=== PATIENT | female | born 1990 | race Caucasian/White ===

== ENCOUNTER 2018-08-27 20:41 | Observation (INO) | payer OTHER ==
[2018-08-27 21:07] VITALS: BMI 26.9
[2018-08-27] MEDS ORDERED: Lactated Ringer's 1,000 ML IV SCH (21:53)
[2018-08-27] MEDS ORDERED: Zolpidem Tartrate 5 MG TAB PO PRN (21:53)
[2018-08-27] MEDS ORDERED: Ondansetron PF 4 MG/2 ML Vial IVP PRN (21:53)
[2018-08-27] MEDS ORDERED: Promethazine HCl 25 MG/ML VIAL IM PRN (21:53)
[2018-08-27 22:02] VITALS: TEMP 98.6
[2018-08-27] MEDS: Acetaminophen 500 MG TAB PO PRN (22:30)
--- NOTE | 2018-08-27 22:35 | HP ---
TIME SEEN: 2130 hours. REASON FOR ADMISSION: Weakness, lower abdominal pain, near syncopal episode at 32 weeks' of gestation. HISTORY OF PRESENT ILLNESS: Ms. Clay is a 28-year-old, 1, para 0, at 32 weeks by stated EDC. Antepartum records not available in unit. She sees Dr. Zackery Aiken at [facility]. She reports that when she was at the [employer] today, she had a near syncopal episode and was brought in to the hospital in [place], ostensibly by EMS. While in [place], she had unremarkable evaluation including laboratory evaluation with a verbal report of a normal EKG. She did have another near syncopal episode on the labor and delivery unit and was transferred here for further care and because her HOP SORTER is at [facility]. HOP SORTER HISTORY: Primigravida. History of PCOS, 32 weeks by stated DAVIDA. The patient reports that she has had lower abdominal cramping for the last month and a half to 2 months of her . She denies rupture of membranes or vaginal bleeding. She also reports that she has had some problems with dizziness and low blood pressure. PAST MEDICAL HISTORY: Significant for history of obesity, anxiety, off medications. PAST SURGICAL HISTORY: Gastric sleeve. MEDICATIONS: 1. vitamin. 2. Phenergan. ALLERGIES: DENIES. SOCIAL HISTORY: Denies tobacco, alcohol, or drug abuse. FAMILY HISTORY: Noncontributory. REVIEW OF SYSTEMS: Noncontributory. PHYSICAL EXAMINATION: GENERAL: Very sad appearing white female, but no acute distress. VITAL SIGNS: Pulse is 74, respirations 18, blood pressure 99/57. HEENT: Within normal limits. LUNGS: Clear to auscultation bilaterally. HEART: Regular rate and rhythm. ABDOMEN: Soft and nontender. She has generalized discomfort with no localizing findings and no palpable contractions. She has no CVA tenderness. CERVIX: Vulva without lesions. Vagina has discharge. Cervix is soft, but posterior, thick, and high, cephalic presentation. EXTREMITIES: No clubbing, cyanosis, or edema. FHTs are 140s. heart rate monitor does not reveal any contractions and reveals a category 1 heart rate tracing. LABORATORY DATA: Thorough laboratory workup was essentially negative and unremarkable at [facility] including hematocrit of 31% and a white count of 8.2, and a normal comp met panel. IMPRESSION: Symptomatic physiologic hypotension of early third trimester with 2 near syncopal episodes, no evidence of cardiogenic etiology, physical exam, interactions suggestive of anxiety or depression being a complicating factor. PLAN: We will place the patient on observation overnight. Observe for signs or symptoms of labor and changes in blood pressure/cardiovascular status. We will discuss with Dr. Zackery Aiken and have her see patient in a.m. Job ID: [id number]
[2018-08-28] MEDS: Acetaminophen 500 MG TAB PO PRN (10:14)
--- NOTE | 2018-08-28 10:46 | PDOC.EVN ---
Event Note - Event Note Event Note: HD2 S: Reports that discomfort is almost resolved after getting Tylenol yesterday, good FM, denies UTI sx, denies constipation or loose stools. Denies fever or chills. O: VS WNL Gen: NAD A and O Abd: gravid, NTTP, discomfort is reproducible with lateral shifting of the uterus Ext: norm ROM, no edema Psy: normal affect Ucx: pending A/P: HD2 s/p overnight observation in L and D for RLQ discomfort that was relived w Tylenol. No syncopal or presyncopal sx since admisison, no signs of PTL. Discussed hydration and rest at home, Tylenol PRN and preg support belt use. Plan for DC this AM.
[2018-08-28 11:38] VITALS: BP 84/49
== END 2018-08-28 12:14 | disposition home health service (06) ==
LOC: L&D/OP 20:41 → L&D 22:02
PROVIDERS: ADMIT Obstetrics & Gynecology; ATTEND Obstetrics & Gynecology
DX: O99.413 Diseases of the circulatory system complicating pregnancy, third trimester (principal); I95.89 Other hypotension; O99.843 Bariatric surgery status complicating pregnancy, third trimester; O99.343 Other mental disorders complicating pregnancy, third trimester; F41.9 Anxiety disorder, unspecified; O99.283 Endocrine, nutritional and metabolic diseases complicating pregnancy, third trimester; E28.2 Polycystic ovarian syndrome; O99.89 Other specified diseases and conditions complicating pregnancy, childbirth and the puerperium; R10.31 Right lower quadrant pain; Z3A.32 32 weeks gestation of pregnancy; Z79.899 Other long term (current) drug therapy
CPT/HCPCS: 87077; 87086; 96360; 96361; 99285; G0378

== ENCOUNTER 2018-10-10 16:53 | Day surgery (SDC) | payer OTHER ==
[2018-10-10 17:39] VITALS: BP 106/76; TEMP 98.8
[2018-10-10 17:40] VITALS: BMI 27.8
[2018-10-10 17:42] LABS: #Lymphocytes 2.4 thou/uL (1.20-3.40); #Monocytes 0.4 thou/uL (0.11-0.59); %Basophils 0.4 % (0.0-1.0); %Eosinophils 0.4 % (0.0-10.0); %Lymphocytes 30.2 % (21.0-51.0); %Monocytes 4.6 % (0.0-10.0); %Neutrophils 64.5 % (42.0-75.0); Hemoglobin 11.3 g/dL (12.0-16.0); Mean Corpuscular HGB CONC 34.1 g/dL (32.0-36.0); Mean Corpuscular Hemoglobin 29.4 pg (27.0-31.0); Mean Corpuscular Volume 86.3 fL (78.0-98.0); Mean Platelet Volume 9.9 fL (7.4-10.4); Platelet Count 125 thou/uL (130-400); RBC Distribution Width 11.3 % (11.5-14.5); Red Blood Cell (RBC) Count 3.85 mill/uL (4.20-5.40); White Blood Cell (WBC) Count 7.8 thou/uL (4.8-10.8)
[2018-10-10] MEDS ORDERED: Acetaminophen 325 MG TAB PO PRN (17:54)
[2018-10-10 18:05] LABS: ALT (SGPT) 8 U/L (8-55); AST (SGOT) 12 U/L (5-34); Albumin 3.4 g/dL (3.5-5.0); Alkaline Phosphatase 162 U/L (40-150); Anion Gap 10 mmol/L (10-20); BUN (Urea Nitrogen) 11 mg/dL (7.0-18.7); Bilirubin, Total 0.4 mg/dL (0.2-1.2); Calc. Creatinine Clearance 145 mL/min (70-130); Calcium 8.6 mg/dL (7.8-10.44); Carbon Dioxide 26 mmol/L (22-29); Chloride 106 mmol/L (98-107); Estimated GFR-MDRD Greater than 90; Globulin 2.4 g/dL (2.4-3.5); Glucose 77 mg/dL (70-105); Potassium 3.8 mmol/L (3.5-5.1); Protein, Total 5.8 g/dL (6.0-8.3); Sodium 138 mmol/L (136-145)
[2018-10-10 18:39] LABS: Creatinine, Urine 297.15 mg/dL (47-110)
--- NOTE | 2018-10-11 11:34 | SS ---
DATE OF ADMISSION: 10/10/2018 DATE OF DISCHARGE: 10/10/2018 CHIEF COMPLAINT: Elevated blood pressures in clinic. HISTORY OF PRESENT ILLNESS: Ms. Clay is a 28-year-old white G1, P0 with an estimated date of confinement of 10/19/2018, who presents after complaining of a headache in clinic and having elevated blood pressures there of to 140s to 150s systolic per her report. Her care has been with Dr. Aiken and has been uncomplicated. PAST MEDICAL HISTORY: Polycystic ovarian syndrome. PAST SURGICAL HISTORY: Gastric sleeve. CURRENT MEDICATIONS: 1. vitamins. 2. Tylenol p.r.n. ALLERGIES: NO KNOWN ALLERGIES. SOCIAL HISTORY: She denies tobacco or alcohol use. FAMILY HISTORY: Unremarkable. REVIEW OF SYSTEMS: Positive for intermittent headache, but denies nausea, vomiting, fever, chills, right upper quadrant pain, or visual changes. PHYSICAL EXAMINATION: VITAL SIGNS: Serial blood pressures here 106/76, 105/76, and 126/78. GENERAL: She is pleasant, in no acute distress. ABDOMEN: Soft, nontender, and gravid. PELVIC: Deferred. heart rate tracing is stable without decelerations. No uterine contractions were seen. LABORATORY DATA: White count 7.8, hemoglobin and hematocrit 11.3 and 33.3, platelet count a 125,000. BUN 11, creatinine 0.75, total bilirubin 0.4, AST 12, ALT 8. Urine random; protein 33, urine creatinine 29.71, giving a protein to creatinine ratio of 0.111. ASSESSMENT: 1. 38-week intrauterine . 2. No evidence of preeclampsia at this time. PLAN: The patient will be dismissed to home with precautions. She states she has a followup with Dr. Aiken next week. Job ID: [id number]
== END 2018-10-10 20:00 | disposition home or self-care (01) ==
LOC: L&D/OP 16:53
PROVIDERS: ATTEND Obstetrics & Gynecology
DX: O99.89 Other specified diseases and conditions complicating pregnancy, childbirth and the puerperium (principal); R51 Headache; O99.283 Endocrine, nutritional and metabolic diseases complicating pregnancy, third trimester; E28.2 Polycystic ovarian syndrome; O99.843 Bariatric surgery status complicating pregnancy, third trimester; Z3A.38 38 weeks gestation of pregnancy
CPT/HCPCS: 36415; 80053; 82570; 84156; 85025; 99283

== ENCOUNTER 2018-10-12 13:48 | Day surgery (SDC) | payer OTHER ==
[2018-10-12 14:23] VITALS: TEMP 99.2; BMI 27.8
[2018-10-12] MEDS ORDERED: Acetaminophen 500 MG TAB PO PRN (15:03)
--- NOTE | 2018-10-12 15:25 | PDOC.LDHP ---
Labor and Delivery H&P Chief complaint: other (Here for MOSES...good FM) HPI: Here for persistent MOSES on/off and some decreased FM Patient of Ginna Light Time: 1445 HPI: 28 yo G1 at 39 weeks, EDC 10/20...on/off MOSES...some decreased FM. here for MOSES eval. Was at last check..no VB. was here Monday lab check passed..here for recheck Review of Systems: complete and neg Due date: 10/20/18 Dating criteria: last menstrual period Grav: 1 Current complications: none Abnormal US findings: No Past Medical History: Past Pysch: anxiety HX...no meds Current medications: pre-leobardo vitamins Previous surgical history: other (Gastric Sleeve) Allergies/Adverse Reactions: Allergies Allergy/AdvReac Type Severity Reaction Status Date / Time No Known Allergies Allergy Verified 10/12/18 14:19 Social history: none - Physical Exam Vital signs reviewed and normal: yes (100/60) General: NAD Heart: RRR Lungs: CTAB Abdomen: gravid Extremeties: no edema FHT: category 1 [place] contractions every: irritability - Assessment MOSES at 39 weeks, was 2cm 2 days ago and 80% as of today...BPs normal here. NST reactive. - Plan Plan: observation in L&D (CMP...for routine. Eval labs from [facility]...NST ok for now; serial BPs)
[2018-10-12 15:39] LABS: ALT (SGPT) 9 U/L (8-55); AST (SGOT) 14 U/L (5-34); Albumin 3.2 g/dL (3.5-5.0); Alkaline Phosphatase 149 U/L (40-150); Anion Gap 12 mmol/L (10-20); BUN (Urea Nitrogen) 11 mg/dL (7.0-18.7); Bilirubin, Total 0.5 mg/dL (0.2-1.2); Calc. Creatinine Clearance 141 mL/min (70-130); Calcium 8.9 mg/dL (7.8-10.44); Carbon Dioxide 22 mmol/L (22-29); Chloride 108 mmol/L (98-107); Estimated GFR-MDRD Greater than 90; Globulin 2.8 g/dL (2.4-3.5); Glucose 91 mg/dL (70-105); Potassium 4.3 mmol/L (3.5-5.1); Sodium 138 mmol/L (136-145)
--- NOTE | 2018-10-12 16:18 | PDOC.EVN ---
Event Note - Event Note Event Note: D/W Light...her labs were actually normal. They were referring to her UPr/CR ratio which was 0.11...that was read out to her as "abnormal", but that is normal. BPs normal here... Ok for outpatient care. CX=2cm
[2018-10-12 16:58] VITALS: BP 85/53
== END 2018-10-12 16:30 | disposition home or self-care (01) ==
LOC: L&D/OP 13:48
PROVIDERS: ATTEND Obstetrics & Gynecology
DX: O99.89 Other specified diseases and conditions complicating pregnancy, childbirth and the puerperium (principal); R51 Headache; O36.8130 Decreased fetal movements, third trimester, not applicable or unspecified; O99.343 Other mental disorders complicating pregnancy, third trimester; F41.9 Anxiety disorder, unspecified; O99.843 Bariatric surgery status complicating pregnancy, third trimester; Z3A.39 39 weeks gestation of pregnancy
CPT/HCPCS: 36415; 80053; 99283

== ENCOUNTER 2018-10-14 21:49 | Inpatient (IN) | payer OTHER ==
[2018-10-14 22:26] VITALS: BMI 28.7
--- NOTE | 2018-10-14 22:44 | PDOC.LDHP ---
Labor and Delivery H&P HPI: Patient of Dr Aiken Time: 2244 CC: possible CTX Patient was seen here Monday and was 3cm then (BPs were normal then) HPI: 28 yo G1 at term here for CTX..no LOF, no NV, CTX irregular about very 6- 10 minutes. No other sxs. Review of Systems: complete ROS completed and as per HPI Current gestational age (weeks): 39 (2 days) Due date: 10/19/18 Dating criteria: last menstrual period Grav: 1 Current complications: other (HX anxiety) Abnormal US findings: No Current medications: pre-leobardo vitamins Previous surgical history: other (gastric sleeve) Allergies/Adverse Reactions: Allergies Allergy/AdvReac Type Severity Reaction Status Date / Time No Known Allergies Allergy Verified 10/14/18 22:22 Social history: none - Physical Exam Vital signs reviewed and normal: yes (108/60) General: NAD Heart: RRR Lungs: CTAB Abdomen: gravid Extremeties: no edema FHT: category 1 [place] contractions every: every 6-7 - Vaginal Exam cm dilated: 3 Effacement: 75% Station: -1 - Assessment Latent labor at full term, BPs normal. - Plan Plan: observation in L&D (No change since last Monday (3 days prior). BPs ok. has recheck with appoitment in AM...may consider scheduled induction at that AM visit. No evidence HR issue at this time.)
[2018-10-14] MEDS ORDERED: Promethazine HCl 25 MG/ML VIAL IM/IV PRN (22:56)
[2018-10-14] MEDS ORDERED: Butorphanol Tartrate 1 MG/ML VIAL IM SCH (23:00)
--- NOTE | 2018-10-14 23:00 | PDOC.EVN ---
Event Note - Event Note Event Note: We will observe for about an hour...or more if desired...as she lives in [facility]
[2018-10-15] MEDS ORDERED: Promethazine HCl 25 MG/ML VIAL IM PRN ×2 (00:22→05:53)
[2018-10-15] MEDS ORDERED: Lidocaine 1% (PF) 30 ML VIAL SC PRN (00:22)
[2018-10-15] MEDS ORDERED: Ondansetron PF 4 MG/2 ML Vial IVP PRN ×3 (00:22→15:37)
[2018-10-15] MEDS ORDERED: Ibuprofen 800 MG TAB PO PRN (00:22)
[2018-10-15] MEDS ORDERED: Butorphanol Tartrate 1 MG/ML VIAL SLOW IVP PRN (00:22)
[2018-10-15] MEDS ORDERED: HYDROcodone/Acetaminophen 5/325 mg Tablet PO PRN ×4 (00:22→15:37)
--- NOTE | 2018-10-15 00:24 | PDOC.EVN ---
Event Note - Event Note Event Note: Recheck after ambulation: CX now 4cm. We will admit for labor care. Dr Aiken to be notified.
--- NOTE | 2018-10-15 00:29 | PDOC.EVN ---
Event Note - Event Note Event Note: GBS POS...will order PCN. No Allergies
[2018-10-15] MEDS ORDERED: Penicillin G Potassium 5 MILL.UNITS in Sodium Chloride 0.9% 100 ML IVPB SCH (00:30)
[2018-10-15] MEDS ORDERED: Fleet Enema 133 ML BOT PR SCH (00:45)
[2018-10-15] MEDS: Lactated Ringer's 1,000 ML IV SCH ×2 (01:38→05:07)
[2018-10-15 02:12] LABS: Hemoglobin 11.7 g/dL (12.0-16.0); Mean Corpuscular HGB CONC 33.6 g/dL (32.0-36.0); Mean Corpuscular Volume 86.3 fL (78.0-98.0); Mean Platelet Volume 10.1 fL (7.4-10.4); Platelet Count 120 thou/uL (130-400); RBC Distribution Width 11.3 % (11.5-14.5); Red Blood Cell (RBC) Count 4.04 mill/uL (4.20-5.40); White Blood Cell (WBC) Count 11.5 thou/uL (4.8-10.8)
[2018-10-15 03:58] LABS: HBSAg Index 0.29 S/CO (0-0.99); HIV (1/2) Antibody/Antigen Non-Reactive (NonReactive); HIV 1/2 INDEX 0.28 S/CO (<1.00); Hep B Surf Ag Non-Reactive S/CO (NonReactive)
[2018-10-15 04:38] LABS: Syphilis Antibody Nonreactive (Nonreactive); Syphilis Antibody Index 0.07 S/CO (<1.00 Non-Reactive)
[2018-10-15] MEDS ORDERED: Fentanyl 4 mcg/Bup 0.1% Cadd 100 ML ONE (04:39)
[2018-10-15] MEDS: Penicillin G 2.5 MILL.units 2.5 MILL.UNITS in Premix Bag 1 BAG IVPB SCH ×3 (05:34→16:08)
[2018-10-15] MEDS ORDERED: diphenhydrAMINE 50 MG/ML VIAL IVP PRN (05:53)
[2018-10-15] MEDS ORDERED: ePHEDrine/0.9% NaCl/PF SYRINGE 50 mg/10 ml SLOW IVP PRN (05:53)
[2018-10-15] MEDS ORDERED: Naloxone HCl 0.4 mg/ml Vial IVP PRN ×2 (05:53)
[2018-10-15] MEDS ORDERED: Acetaminophen 325 MG TAB PO PRN (05:53)
[2018-10-15] MEDS ORDERED: Lactated Ringer's 500 ML IV PRN (05:53)
[2018-10-15] MEDS ORDERED: Fentanyl 4 mcg/Bupivacaine 0.1% Cassette 100 ML EPIDURAL SCH (06:00)
[2018-10-15] MEDS ORDERED: Communication Order-Pharmacy FS SCH (06:00)
--- NOTE | 2018-10-15 08:03 | PDOC.LDPN ---
Labor & Delivery Progress Note - Subjective Subjective: comfortable - Objective Vital signs reviewed and normal: yes General: resting Dilation: 7 Effacement: 90% Station: 0 FHT: category 1 AROM: clear fluid - Assessment (1) Term Code(s): Z34.90 - ENCNTR FOR SUPRVSN OF NORMAL , UNSP, UNSP TRIMESTER Current Visit: Yes Status: Acute (2) Active labor at term Code(s): [id number] - Current Visit: Yes Status: Acute Plan: continue plan of care
[2018-10-15] MEDS: NS / Oxytocin 40 units/1000ml 1,000 ML IV PRN ×2 (12:39→13:38)
--- NOTE | 2018-10-15 12:50 | PDOC.OPDEL ---
OB Operative/Delivery Note Delivery Dr/Surgeon: Attila Pre-Delivery Diagnosis: active labor Procedure/Post Delivery Dx: spontaneous vaginal delivery Weeks gestation: 39 - Findings A Sex: male - 1 min: 8 - 5 min: 9 - Additional Findings/Plan Placenta delivered: spontaneous Repaired Obstetrical Laceration: periurethral (right) Compilations/Other Findings: loose nuchal x 1 reduced at perineum Post delivery plan: routine recovery
[2018-10-15] MEDS ORDERED: diphenhydrAMINE 25 MG CAP PO PRN (15:37)
[2018-10-15] MEDS ORDERED: NS / Oxytocin 40 units/1000ml 1,000 ML IV SCH (15:37)
[2018-10-15] MEDS ORDERED: Preparation H Ointment 28 GM TUBE PR PRN (15:37)
[2018-10-15] MEDS ORDERED: Milk Of Magnesia 30 ML UDCUP PO PRN (15:37)
[2018-10-15] MEDS ORDERED: Benzocaine-Menthol 82.5 ML CAN TOP PRN (15:37)
[2018-10-15] MEDS ORDERED: Bisacodyl 10 MG SUPP PR PRN (15:37)
[2018-10-15] MEDS: Ibuprofen 800 MG TAB PO SCH (16:48)
[2018-10-15] MEDS: Ferrous Sulfate 325 MG TAB PO SCH (18:13)
[2018-10-15] MEDS ORDERED: Bupivacaine/Epinephrine 0.25% 30 ML VIAL ONE (22:06)
[2018-10-16] MEDS: Docusate Calcium (SURFAK) 240 MG CAP PO SCH ×3 (01:06→22:20)
[2018-10-16] MEDS: Ibuprofen 800 MG TAB PO SCH ×4 (05:22→22:20)
[2018-10-16] MEDS: Ferrous Sulfate 325 MG TAB PO SCH ×2 (07:43→16:20)
[2018-10-16] MEDS ORDERED: Adacel (T-DAP) 0.5 ML SYRINGE IM ONE (09:00)
[2018-10-16] MEDS: Prenatal Vitamin 1 TAB PO SCH (09:48)
--- NOTE | 2018-10-16 10:10 | PDOC.PP ---
Post Progress Note Post Day #: 1 Subjective: doing well, normal lochia, mild discomfort PO intake tolerated: yes Flatus: yes Ambulation: yes Vital Signs (12 hours) Temp Pulse Resp BP Pulse Ox 10/16/18 08:35 97.7 F 55 L 20 95/60 100 10/16/18 03:15 98.2 F 68 16 96/50 L 10/15/18 23:00 98.5 F 70 20 91/52 L Weight Weight 178 lb - Physical Examination General: NAD Respiratory: non-labored breathing Abdominal: no distention Fundus firm & at: below umb Skin: no rash Neurological: no gross focal deficits Psychiatric: A&Ox3, normal affect Result Diagrams: 10/15/18 01:59 Additional Labs: Post Labs Blood Type O POSITIVE 10/15/18 02:30 Hep Bs Antigen Non-Reactive S/CO (NonReactive) 10/15/18 01:59 (1) Term Code(s): Z34.90 - ENCNTR FOR SUPRVSN OF NORMAL , UNSP, UNSP TRIMESTER Status: Acute (2) Active labor at term Code(s): DFO0710 - Status: Acute - Assessment/Plan PPD1 doing well, no concerns, plan for DC tomorrow.
[2018-10-17] MEDS: Ibuprofen 800 MG TAB PO SCH ×2 (05:53→12:07)
--- NOTE | 2018-10-17 08:13 | PDOC.PP ---
Post Progress Note Post Day #: 1 Subjective: No concerns. Minimal pain and lochia. Breast feeding. PO intake tolerated: yes Flatus: yes Ambulation: yes Vital Signs (12 hours) Temp Pulse Resp BP Pulse Ox 10/16/18 20:15 98.7 F 73 20 106/57 L 99 Weight Weight 178 lb - Physical Examination General: NAD Cardiovascular: RRR Respiratory: non-labored breathing Abdominal: no distention, appropriately TTP Fundus firm & at: below umbilicus Extremities: negative homans (B) Neurological: no gross focal deficits Psychiatric: A&Ox3, normal affect Result Diagrams: 10/15/18 01:59 Additional Labs: Post Labs Blood Type O POSITIVE 10/15/18 02:30 Hep Bs Antigen Non-Reactive S/CO (NonReactive) 10/15/18 01:59 (1) Vaginal delivery Code(s): O80 - ENCOUNTER FOR FULL-TERM UNCOMPLICATED DELIVERY Status: Acute - Assessment/Plan PPD2 VSSAF Plan for d/c home today when baby ready.
[2018-10-17 08:17] VITALS: BP 107/59; TEMP 98.2
[2018-10-17] MEDS: Docusate Calcium (SURFAK) 240 MG CAP PO SCH (09:07)
[2018-10-17] MEDS: Ferrous Sulfate 325 MG TAB PO SCH (09:07)
[2018-10-17] MEDS: Prenatal Vitamin 1 TAB PO SCH (09:07)
[2018-10-17] MEDS ORDERED: Measles/Mumps/Rubella 10 MCG/0.5 ML VIAL SC ONE (12:00)
== END 2018-10-17 13:30 | disposition home or self-care (01) | DRG 807 ==
LOC: L&D/OP 21:49 → L&D 10-15 01:15 → 3SW 10-15 15:25
PROVIDERS: ADMIT Obstetrics & Gynecology; ATTEND Obstetrics & Gynecology
PROC: 10E0XZZ Delivery of Products of Conception, External Approach (ICD-10-PCS; principal; 2018-10-15)
PROC: 0UQMXZZ Repair Vulva, External Approach (ICD-10-PCS; 2018-10-15)
DX: O99.824 Streptococcus B carrier state complicating childbirth (principal); Z37.0 Single live birth; O69.81X0 Labor and delivery complicated by cord around neck, without compression, not applicable or unspecified; O71.82 Other specified trauma to perineum and vulva; Z3A.39 39 weeks gestation of pregnancy
CPT/HCPCS: 36415; 51702; 85027; 86780; 86850; 86900; 86901; 87340; 87389; 90707; 99285; J1200; J2001; J2540; J3490; Q0163